=== PATIENT | male | born 1980 ===

== ENCOUNTER → 2022-12-05 | Outpatient (CLI) | payer MEDICAID | LOC: COL.RAD 10:43 | DX: R09.81 Nasal congestion (principal); J34.89 Other specified disorders of nose and nasal sinuses; T17.1XXA Foreign body in nostril, initial encounter; X58.XXXA Exposure to other specified factors, initial encounter ==

== ENCOUNTER 2022-12-19 10:44 | Emergency (ER) | payer MEDICAID ==
[~2022-12-19] VITALS: Ht 177.8 cm; Wt 81.3 kg
[2022-12-19 10:57] VITALS: BP 105/67; TEMP 98.3
[2022-12-19] MEDS ORDERED: NORCO 325 MG-51 TAB PO ×2 (11:22→14:27)
[2022-12-19] MEDS ORDERED: PEN-VEE K500 MG PO (11:22)
[2022-12-19 12:03] VITALS: PULSE 75
== END 2022-12-19 12:03 | disposition home or self-care (01) ==
LOC: COL.ER 10:44
DX: K08.89 Other specified disorders of teeth and supporting structures (principal)